=== PATIENT | male | born 2000 | race Caucasian/White ===

== ENCOUNTER 2020-03-02 13:43 | Outpatient (REF) | payer BC, SELFPAY ==
[2020-03-06 21:41] LABS: SARS-CoV-2 RNA Undetected (Undetected); SARS-CoV-2 Specimen Source Nasopharynx
== END 2020-03-02 14:03 ==
LOC: NCHCN 13:43
PROVIDERS: Visit Provider Internal Medicine
DX: Z20.828 Contact with and (suspected) exposure to other viral communicable diseases (principal)
CPT/HCPCS: U0003

== ENCOUNTER 2020-06-13 10:25 | Outpatient (CLI) | payer BC, SELFPAY ==
[2020-06-14 23:26] LABS: Patient Race White; SARS-CoV-2 RNA Undetected (Undetected); SARS-CoV-2 Specimen Source Nasal
== END 2020-06-13 10:45 ==
PROVIDERS: Visit Provider Internal Medicine
DX: Z11.59 Encounter for screening for other viral diseases (principal)
CPT/HCPCS: U0003

== ENCOUNTER 2020-07-25 13:13 | Outpatient (REF) | payer BC, SELFPAY ==
[2020-07-26 21:44] LABS: COVID-19 RT-PCR Result NEGATIVE (Negative)
== END 2020-07-25 13:33 ==
LOC: NCHCN 13:13
PROVIDERS: Visit Provider Internal Medicine
DX: Z20.828 Contact with and (suspected) exposure to other viral communicable diseases (principal)
CPT/HCPCS: U0003

== ENCOUNTER 2021-03-17 17:04 | Outpatient (REF) | payer BC, SELFPAY ==
[2021-03-20 09:12] LABS: Hepatitis B Surface Ag Negative (Negative)
[2021-03-20 11:24] LABS: HBs Antibody, Quant 8.9 mIU/mL (See Note); Hepatitis B Surface Ab Negative (See Note)
== END 2021-03-17 17:05 | disposition home or self-care (01) ==
LOC: NCHCN 17:04
PROVIDERS: Visit Provider Family Medicine
DX: Z00.00 Encounter for general adult medical examination without abnormal findings (principal)
CPT/HCPCS: 86706; 87340

== ENCOUNTER 2021-11-17 22:47 | Outpatient (REF) | payer BC, SELFPAY ==
[2021-11-17 16:13] LABS: Abs Immature Grans 0.02 10^3/uL (0.0-0.06); Absolute Basophil Count 0.08 10^3/uL (0.0-0.2); Absolute Eosinophil Count 0.55 10^3/uL (0.0-0.7); Absolute Lymphocyte Count 2.02 10^3/uL (1.2-3.4); Absolute Monocyte Count 0.64 10^3/uL (0.1-0.8); Absolute Neutrophil Count 4.19 10^3/uL (1.2-6.7); Basophils % 1.1; Eosinophils % 7.3; HCT 42.4 % (40.0-50.0); Immature Grans % 0.3; Lymphocytes % 26.9; MCH 28.2 pg (27.0-33.0); MCV 85 fL (80-95); MPV 12.6 fL (8.0-11.0); Monocytes % 8.5; Neutrophils % 55.9; Platelet Count 154 10^3/uL (130-400); RBC 4.97 10^6/uL (4.36-5.78); RDW 12.4 % (11.8-14.1); RDW-SD 38.3 fL
[2021-11-17 16:19] LABS: ESR 4 mm/hr (0-15)
[2021-11-17 16:38] LABS: ALT 23 U/L (16-63); AST 11 U/L (15-37); Albumin 4.3 g/dL (3.4-5.0); Alkaline Phosphatase 63 U/L (46-116); Anion Gap 8.2 mmol/L (3-11); BUN 16 mg/dL (7-18); Bilirubin, Total 0.3 mg/dL (0.2-1.0); CO2 27.8 mmol/L (21.0-32.0); CREATININE 0.9 mg/dL (0.70-1.30); Chloride 104 mmol/L (98-107); Glucose 81 mg/dL (74-106); Potassium 4.5 mmol/L (3.5-5.1); Sodium 140 mmol/L (136-145); TSH (W/Ref FT4) 0.57 uIU/mL (0.36-3.74); Total Protein 7.2 g/dL (6.4-8.2)
== END 2021-11-17 22:48 | disposition home or self-care (01) ==
LOC: NCHCN 22:47
PROVIDERS: Visit Provider Family Medicine
DX: R55 Syncope and collapse (principal)
CPT/HCPCS: 80053; 85652; 84443; 85025

== ENCOUNTER 2024-05-08 22:34 | Outpatient (REF) | payer MEDICAID, SELFPAY ==
[2024-05-11 09:39] LABS: HBs Antibody, Quant 105.4 mIU/mL (See Note); Hepatitis B Surface Ab Positive (See Note)
[2024-05-11 10:00] LABS: Measles IgG Antibody Positive (See Note)
[2024-05-11 10:08] LABS: Mumps Antibody IgG Positive (See Note); Rubella IgG Ab (UVM) Positive (See Note)
== END 2024-05-08 22:35 | disposition home or self-care (01) ==
LOC: NCHCN 22:34
PROVIDERS: Visit Provider Nurse Practitioner Family
DX: Z02.0 Encounter for examination for admission to educational institution (principal)
CPT/HCPCS: 86706; 86735; 86762; 86765

== ENCOUNTER 2024-06-29 02:26 | Outpatient (CLI) | payer MEDICAID, SELFPAY ==
[2024-07-01 13:19] LABS: TB Interpretation Negative (Negative); TB1 Ag minus Nil 0.02 IU/mL; TB2 Ag minus Nil 0.05 IU/mL
== END 2024-06-29 02:27 | disposition home or self-care (01) ==
LOC: LBO 02:26
PROVIDERS: Visit Provider Nurse Practitioner Family
DX: Z11.1 Encounter for screening for respiratory tuberculosis (principal)
CPT/HCPCS: 36415; 86480